=== PATIENT | female | born 1975 | race Caucasian/White ===

== ENCOUNTER 2021-03-02 08:03 | Emergency (ER) | payer OTHER ==
[2021-03-02 08:42] LABS: HEMATOCRIT 31.1 % (37.0-47.0); HEMOGLOBIN 10.1 g/dl (12.0-16.0); IMMATURE GRANULOCYTES 0.3 % (0.0-5.0); MEAN CELL VOLUME 86.6 fL CALC (80.0-100.0); MEAN CORPUSCULAR HGB 28.1 pG CALC (26.0-32.0); MEAN CORPUSCULAR HGB CONC 32.5 g/dL CAL (32.0-36.0); NEUT# 4.9 thou/uL (2.00-7.15); RED BLOOD COUNT 3.59 mill/uL (4.20-5.60); RED CELL DISTRI WIDTH 13.4 % (11.5-15.5)
[2021-03-02 09:02] LABS: ALBUMIN 3.4 g/dL (3.2-5.0); ALKALINE PHOSPHATASE 69 u/l (38-126); BILIRUBIN, TOTAL 0.5 mg/dL (0.0-1.4); BUN 31 mg/dL (7-17); BUN/CREATININE RATIO 36 (12-20 (CALC)); CARBON DIOXIDE 26 mmol/l (22-30); CHLORIDE 101 mmol/l (95-108); CREATININE 0.9 mg/dL (0.5-1.0); GFR > 60 ML/MIN (>=60 (CALC)); GFR FOR AFR.AMER. > 60 ML/MIN (>=60 (CALC)); SGOT/AST 39 u/l (14-36); SODIUM 131 mmol/l (137-146); TOTAL PROTEIN 6.9 g/dL (6.3-8.2)
[2021-03-02 09:03] LABS: ANION GAP 9 (6-22 (CALC)); POTASSIUM 5.3 mmol/l (3.5-5.1)
[2021-03-02 09:39] LABS: URINE BILIRUBIN - DIPSTICK NEGATIVE (NEGATIVE); URINE BLOOD DIPSTICK SMALL (NEGATIVE); URINE COLOR YELLOW; URINE GLUCOSE - DIPSTICK >=1000 mg/dL (NEGATIVE); URINE KETONE NEGATIVE (NEGATIVE); URINE LEUK ESTERASE NEGATIVE (NEGATIVE); URINE PH 6.5 (4.5-8.0); URINE PROTEIN - DIPSTICK 100 mg/dL (NEG-TRACE); URINE SPECIFIC GRAVITY 1.015; URINE UROBILINOGEN - DIPSTICK 0.2 E.U./dL (0.2)
[2021-03-02 09:52] LABS: URINE NITRITE - DIPSTICK NEGATIVE (Negative)
[2021-03-02 09:53] LABS: URINE EPITHELIAL CELLS MODERATE EPI/hpf (0-FEW)
[2021-03-02 12:02] VITALS: BP 160/80
[2021-03-02] MEDS ORDERED: ARIPIPRAZOLE20 MG PO (12:18)
[2021-03-02] MEDS ORDERED: HUMIRA40 MG/0.8 IM (12:21)
[2021-03-02] MEDS ORDERED: HUMULIN R500 UNIT/1 SC (12:22)
[2021-03-02] MEDS ORDERED: HYDROCORTISONE1 % EX (12:23)
[2021-03-02] MEDS ORDERED: LEVEMIR FL100 UNIT/M SC (12:24)
[2021-03-02] MEDS ORDERED: LEVEMIR100 UNIT SC (12:26)
[2021-03-02] MEDS ORDERED: LISINOPRIL10 MG PO (12:29)
[2021-03-02] MEDS ORDERED: METOPROL TAR100 MG PO (12:30)
[2021-03-02] MEDS ORDERED: NUEDEXTA1 CAP PO (12:31)
[2021-03-02] MEDS ORDERED: OMEPRAZOLE DR40 MG PO (12:33)
[2021-03-02] MEDS ORDERED: TRILEPTAL300 M1 PO (12:34)
[2021-03-02] MEDS ORDERED: PERCOCET 5/321 COMBO PO (12:35)
[2021-03-02] MEDS ORDERED: LYRICA200 MG PO (12:36)
[2021-03-02] MEDS ORDERED: TRAZODONE50 MG PO (12:38)
[2021-03-02] MEDS ORDERED: VRAYLAR4.5 MG PO (12:39)
[2021-03-02] MEDS ORDERED: XELJANZ10 MG PO (12:40)
[2021-03-02] MEDS ORDERED: BUT/APAP/CAF PO (12:41)
== END 2021-03-02 13:15 ==
LOC: ED 08:03
PROVIDERS: Emergency Medicine
DX: E10.65 Type 1 diabetes mellitus with hyperglycemia (principal); I10 Essential (primary) hypertension; Z87.820 Personal history of traumatic brain injury; Z79.4 Long term (current) use of insulin

== ENCOUNTER 2021-03-02 16:43 | Emergency (ER) | payer OTHER ==
[~2021-03-02 16:43] MED LIST: ARIPIPRAZOLE20 MG PO; BUT/APAP/CAF PO; HUMIRA40 MG/0.8 IM; HUMULIN R500 UNIT/1 SC; HYDROCORTISONE1 % EX; LEVEMIR FL100 UNIT/M SC; LEVEMIR100 UNIT SC; LISINOPRIL10 MG PO; LYRICA200 MG PO; METOPROL TAR100 MG PO; NUEDEXTA1 CAP PO; OMEPRAZOLE DR40 MG PO; PERCOCET 5/321 COMBO PO; TRAZODONE50 MG PO; TRILEPTAL300 M1 PO; VRAYLAR4.5 MG PO; XELJANZ10 MG PO
[2021-03-02 19:12] VITALS: BP 180/125
== END 2021-03-02 19:28 ==
LOC: ED 16:43
DX: E10.65 Type 1 diabetes mellitus with hyperglycemia (principal); I10 Essential (primary) hypertension; Z79.4 Long term (current) use of insulin; Z87.820 Personal history of traumatic brain injury

== ENCOUNTER 2021-03-04 09:05 | Emergency (ER) | payer OTHER ==
[2021-03-04 09:47] LABS: URINE BILIRUBIN - DIPSTICK NEGATIVE (NEGATIVE); URINE BLOOD DIPSTICK NEGATIVE (NEGATIVE); URINE COLOR YELLOW; URINE GLUCOSE - DIPSTICK >=1000 mg/dL (NEGATIVE); URINE KETONE NEGATIVE (NEGATIVE); URINE LEUK ESTERASE NEGATIVE (NEGATIVE); URINE PROTEIN - DIPSTICK 100 mg/dL (NEG-TRACE); URINE UROBILINOGEN - DIPSTICK 0.2 E.U./dL (0.2)
[2021-03-04 09:49] LABS: HEMATOCRIT 34.1 % (37.0-47.0); IMMATURE GRANULOCYTES 0.4 % (0.0-5.0); MEAN CELL VOLUME 86.8 fL CALC (80.0-100.0); MEAN CORPUSCULAR HGB CONC 32.3 g/dL CAL (32.0-36.0); NEUT# 4.99 thou/uL (2.00-7.15); RED BLOOD COUNT 3.93 mill/uL (4.20-5.60); RED CELL DISTRI WIDTH 13.4 % (11.5-15.5)
[2021-03-04 09:54] LABS: URINE NITRITE - DIPSTICK NEGATIVE (Negative)
[2021-03-04 10:02] LABS: URINE RBC 0-2 RBC/hpf (0-5); URINE SQUAMOUS EPITHELIAL CELL FEW EPI/hpf (0-FEW); URINE WBC 0-2 WBC/hpf (0-5)
[2021-03-04 10:07] LABS: ALBUMIN 3.5 g/dL (3.2-5.0); ALKALINE PHOSPHATASE 90 u/l (38-126); BILIRUBIN, TOTAL 0.4 mg/dL (0.0-1.4); BUN 29 mg/dL (7-17); BUN/CREATININE RATIO 31 (12-20 (CALC)); CHLORIDE 97 mmol/l (95-108); CREATININE 0.9 mg/dL (0.5-1.0); GFR > 60 ML/MIN (>=60 (CALC)); GFR FOR AFR.AMER. > 60 ML/MIN (>=60 (CALC)); SGOT/AST 25 u/l (14-36); SODIUM 126 mmol/l (137-146); TOTAL PROTEIN 7.2 g/dL (6.3-8.2)
[2021-03-04 10:10] LABS: ANION GAP 14 (6-22 (CALC)); CARBON DIOXIDE 20 mmol/l (22-30); POTASSIUM 5.3 mmol/l (3.5-5.1)
[2021-03-04 12:57] VITALS: BP 128/74
== END 2021-03-04 12:57 ==
LOC: ED 09:05
PROVIDERS: Family Medicine
DX: E11.65 Type 2 diabetes mellitus with hyperglycemia (principal); I10 Essential (primary) hypertension; Z79.4 Long term (current) use of insulin; Z87.820 Personal history of traumatic brain injury

== ENCOUNTER 2021-03-05 23:29 | Emergency (ER) | payer OTHER ==
[~2021-03-05] VITALS: Ht 147.3 cm; Wt 56.3 kg
[2021-03-06 00:17] LABS: HEMATOCRIT 36.1 % (37.0-47.0); HEMOGLOBIN 11.5 g/dl (12.0-16.0); IMMATURE GRANULOCYTES 0.3 % (0.0-5.0); MEAN CELL VOLUME 87.6 fL CALC (80.0-100.0); MEAN CORPUSCULAR HGB 27.9 pG CALC (26.0-32.0); MEAN CORPUSCULAR HGB CONC 31.9 g/dL CAL (32.0-36.0); NEUT# 1.95 thou/uL (2.00-7.15); RED BLOOD COUNT 4.12 mill/uL (4.20-5.60); RED CELL DISTRI WIDTH 13.6 % (11.5-15.5)
[2021-03-06 00:46] VITALS: BP 154/89
[2021-03-06 00:54] LABS: ALBUMIN 3.9 g/dL (3.2-5.0); ALKALINE PHOSPHATASE 81 u/l (38-126); ANION GAP 11 (6-22 (CALC)); BILIRUBIN, TOTAL 0.4 mg/dL (0.0-1.4); BUN 29 mg/dL (7-17); BUN/CREATININE RATIO 30 (12-20 (CALC)); CARBON DIOXIDE 26 mmol/l (22-30); CHLORIDE 103 mmol/l (95-108); ETHYL ALCOHOL 0 mg/dl (0-30); GFR 60 ML/MIN (>=60 (CALC)); GFR FOR AFR.AMER. > 60 ML/MIN (>=60 (CALC)); POTASSIUM 4.7 mmol/l (3.5-5.1); SGOT/AST 28 u/l (14-36); SODIUM 135 mmol/l (137-146); TOTAL PROTEIN 8.3 g/dL (6.3-8.2)
== END 2021-03-06 08:40 ==
LOC: ED 23:29
PROVIDERS: Family Medicine
DX: I10 Essential (primary) hypertension (principal); E11.9 Type 2 diabetes mellitus without complications; F41.9 Anxiety disorder, unspecified; T46.5X6A Underdosing of other antihypertensive drugs, initial encounter; Z91.128 Patient's intentional underdosing of medication regimen for other reason; Z87.820 Personal history of traumatic brain injury; Z79.4 Long term (current) use of insulin

== ENCOUNTER 2021-03-10 04:58 | Emergency (ER) | payer OTHER ==
[~2021-03-10] VITALS: Ht 147.3 cm; Wt 56.0 kg
[2021-03-10 06:26] LABS: HEMATOCRIT 31.7 % (37.0-47.0); IMMATURE GRANULOCYTES 0.4 % (0.0-5.0); MEAN CELL VOLUME 88.5 fL CALC (80.0-100.0); MEAN CORPUSCULAR HGB 27.9 pG CALC (26.0-32.0); MEAN CORPUSCULAR HGB CONC 31.5 g/dL CAL (32.0-36.0); NEUT# 4.73 thou/uL (2.00-7.15); RED BLOOD COUNT 3.58 mill/uL (4.20-5.60); RED CELL DISTRI WIDTH 13.9 % (11.5-15.5)
[2021-03-10 06:28] VITALS: BP 143/65
[2021-03-10 06:40] LABS: ALBUMIN 3.3 g/dL (3.2-5.0); ALKALINE PHOSPHATASE 69 u/l (38-126); ANION GAP 10 (6-22 (CALC)); BILIRUBIN, TOTAL 0.4 mg/dL (0.0-1.4); BUN 36 mg/dL (7-17); BUN/CREATININE RATIO 37 (12-20 (CALC)); CARBON DIOXIDE 25 mmol/l (22-30); CHLORIDE 105 mmol/l (95-108); GFR 60 ML/MIN (>=60 (CALC)); GFR FOR AFR.AMER. > 60 ML/MIN (>=60 (CALC)); POTASSIUM 4.7 mmol/l (3.5-5.1); PROTHROMBIN TIME 9.9 SECONDS (9.0-12.5); SGOT/AST 27 u/l (14-36); SODIUM 134 mmol/l (137-146); TOTAL PROTEIN 6.9 g/dL (6.3-8.2)
== END 2021-03-10 09:07 | disposition left against medical advice (07) ==
LOC: ED 04:58
PROVIDERS: Emergency Medicine
DX: H53.2 Diplopia (principal); R20.0 Anesthesia of skin; R25.8 Other abnormal involuntary movements; G43.909 Migraine, unspecified, not intractable, without status migrainosus; E11.649 Type 2 diabetes mellitus with hypoglycemia without coma; R04.0 Epistaxis; I10 Essential (primary) hypertension; F41.9 Anxiety disorder, unspecified; F25.9 Schizoaffective disorder, unspecified; K21.9 Gastro-esophageal reflux disease without esophagitis; W19.XXXA Unspecified fall, initial encounter; Y92.099 Unspecified place in other non-institutional residence as the place of occurrence of the external cause; Z79.4 Long term (current) use of insulin; Z87.820 Personal history of traumatic brain injury; Z91.19 Patient's noncompliance with other medical treatment and regimen; F43.10 Post-traumatic stress disorder, unspecified; M06.9 Rheumatoid arthritis, unspecified; G47.00 Insomnia, unspecified

== ENCOUNTER 2021-03-10 15:20 | Observation (INO) | payer OTHER ==
[~2021-03-10] VITALS: Ht 147.3 cm; Wt 55.0 kg
--- NOTE | 2021-03-10 15:20 | NUR ---
to room 13 via ems for triage
[2021-03-10 15:47] LABS: HEMATOCRIT 31.2 % (37.0-47.0); HEMOGLOBIN 9.9 g/dl (12.0-16.0); IMMATURE GRANULOCYTES 0.3 % (0.0-5.0); MEAN CELL VOLUME 88.6 fL CALC (80.0-100.0); MEAN CORPUSCULAR HGB 28.1 pG CALC (26.0-32.0); MEAN CORPUSCULAR HGB CONC 31.7 g/dL CAL (32.0-36.0); NEUT# 2.7 thou/uL (2.00-7.15); RED BLOOD COUNT 3.52 mill/uL (4.20-5.60); RED CELL DISTRI WIDTH 13.9 % (11.5-15.5)
[2021-03-10 16:00] LABS: ALBUMIN 3.7 g/dL (3.2-5.0); ALKALINE PHOSPHATASE 73 u/l (38-126); ANION GAP 9 (6-22 (CALC)); BILIRUBIN, TOTAL 0.5 mg/dL (0.0-1.4); BUN 37 mg/dL (7-17); BUN/CREATININE RATIO 38 (12-20 (CALC)); CARBON DIOXIDE 25 mmol/l (22-30); CHLORIDE 106 mmol/l (95-108); GFR 60 ML/MIN (>=60 (CALC)); GFR FOR AFR.AMER. > 60 ML/MIN (>=60 (CALC)); POTASSIUM 4.5 mmol/l (3.5-5.1); SGOT/AST 32 u/l (14-36); SODIUM 136 mmol/l (137-146); TOTAL PROTEIN 7.7 g/dL (6.3-8.2)
[2021-03-10 16:11] LABS: MYOGLOBIN 49 ng/mL (0 - 62)
--- NOTE | 2021-03-10 16:20 | NUR ---
PATIENT RESTING, AAOX4, RESP EVEN AND UNLABORED. CONTINUING TO MONITOR.
--- NOTE | 2021-03-10 16:28 | NUR ---
OK TO FEED PATIENT PER DR RUTH
--- NOTE | 2021-03-10 17:06 | NUR ---
BLOOD SUGAR RECHECK AT THIS TIME IS 128.
--- NOTE | 2021-03-10 17:09 | NUR ---
ATTEMPTED TO CALL REPORT, NURSE WILL CALL BACK
--- NOTE | 2021-03-10 17:15 | NUR ---
REPORT CALLED TO KAYLEN WU IN SBAR FORMAT. ALL QUESTIOMS ANSWERED.
--- NOTE | 2021-03-10 17:15 | NUR ---
REPORT RECEIVED FROM KAYLEN DALEY
--- NOTE | 2021-03-10 17:27 | NUR ---
PT ARRIVED TO MED/SURG ROOM 271 IN STABLE CONDITION VIA WHEELCHAIR ACCOMPANIED BY KAYLEN DALEY;PT AMBULATED WITH A STEADY GAIT TO BEDSIDE;WT AND VS OBTAINED BY MARILEE DUMAS;PT A&O X3, ORIENTED TO ROOM AND CALL LIGHT SYSTEM;PT REPORTS FEELING DIZZY WOOD HEEL FITTER MACHINE AND HAVING UNCONTROLLED BLOOD SUGARS IN THE PAST;PT DENIES ANY CURRENT PAIN OR DISCOMFORTS,PAIN SCALE AND REPORTING EDUCATED;ASSESSMENT COMPLETED;RESPIRATIONS EVEN AND UNLABORED ON RA,CLEAR LUNG SOUNDS;ABDOMEN SOFT ON PALPATION AND ACTIVE IN ALL 4 QUADRANTS,LAST BM 03/03/21.PT REPORTS THIS IS NORMAL FOR HER AND PRUNE JUICE PROVIDED TO ASSIST IN BOWEL CARE;STRONG PEDAL PULSES;SMALL ABRASION NOTED TO CHIN,EDGE INKER;SKIN OTHERWISE INTACT;TELE MONITORING IN PLACE;#20G TO RAC FLUSHED AND PATENT;SEIZURE PRECAUTIONS IN PLACE;FALL AND ALLERGY BAND APPLIED;ACCUCHECK PRIOR TO BEING BROUGHT TO FLOOR 128, MEAL TRAY PROVIDED;PT DENIES ANY ADDITIONAL NEEDS AND IS ENCOURAGED TO CALL FOR ASSISTANCE IF NEEDED;FALL PRECAUTIONS IN PLACE WITH BED IN THE LOWEST POSITION AND CALL LIGHT IN REACH;WILL CONTINUE TO MONITOR
--- NOTE | 2021-03-10 17:47 | NUR ---
CALL PLACED TO FOR CLARIFICATION ON ORDERS SENT TO PHARMACY. NEW ORDERS RECEIVED.
[2021-03-10 17:53] VITALS: BP 128/81
[2021-03-10 19:00] VITALS: BP 111/69
--- NOTE | 2021-03-10 20:21 | NUR ---
PATIENT IS LYING IN BED. ALERT AND ORIENTED X3. C/O BACK PAIN. PERCOCET PO GIVEN ORDERED WITH POSITIVE EFFECT. RESPIRATIONS EASY. ON TELEMETRY RUNNING SR. VAD PATENT, INTACT. BLOOD SUGAR THIS EVENING IS 271. FALL PRECAUTIONS IN PLACE. BED IN LOW POSITION. CALL LIGHT WITHIN REACH.
[2021-03-10 23:00] VITALS: BP 105/63
[2021-03-11 04:00] VITALS: BP 145/84
--- NOTE | 2021-03-11 07:05 | NUR ---
REPORT RECEIVED FROM KAURRN
[2021-03-11 07:47] VITALS: BP 138/83
--- NOTE | 2021-03-11 07:50 | NUR ---
PT RESTING IN SEMI FOWLERS POSITION,A&O X3;VS OBTAINED AND ASSESSMENT COMPLETED;PT DENIES ANY CURRENT PAIN OR DISCOMFORTS,PAIN SCALE AND REPORTING EDUCATED;RESPIRATIONS EVEN AND UNLABORED ON RA,CLEAR LUNG SOUNDS;ABDOMEN SOFT ON PALPATION AND ACTIVE IN ALL 4 QUADRANTS;STRONG PEDAL PULSES;SMALL ABRASION NOTED TO CHIN,SKIN OTHERWISE INTACT;TELE MONITORING IN PLACE;#20G TO RAC FLUSHED AND PATENT,SITE APPEARS HEALTHY;ACCUCHECK 365, PT COVERED WITH SLIDING SCALE INSULIN PER ORDER;PT DENIES ANY ADDITIONAL NEEDS AND IS ENCOURAGED TO CALL FOR ASSISTANCE IF NEEDED;FALL PRECAUTIONS IN PLACE WITH BED IN THE LOWEST POSITION AND CALL LIGHT IN REACH;WILL CONTINUE TO MONITOR
--- NOTE | 2021-03-11 08:35 | NUR ---
PT REPORTS LOWER BACK PAIN RATING 9/10 ON THE PAIN SCALE AND REQUESTS PAIN MEDICATION,PT MEDICATED WITH PRN PERCOCET AT THIS TIME;WILL CONTINUE TO MONITOR FOR EFFECTIVENESS
--- NOTE | 2021-03-11 09:37 | NUR ---
AND RITCHIE ANRP AT BEDSIDE DISCUSSING POC.
[2021-03-11 10:43] VITALS: BP 102/65
--- NOTE | 2021-03-11 11:20 | NUR ---
CALL PLACED TO [facility] REGARDING PLAN OF CARE INCLUDING PLANS TO D/C PT BACK TO THE [facility]. D/C INSTRUCTIONS FAXED TO MARLO AT [facility] PER REQUEST;AWAITING CALL BACK FOR TRANSPORTATION EMBROIDERY OPERATOR TIME;ALL DISCHARGE INSTRUCTIONS PROVIDED TO PT AT THIS TIME;PT INSTRUCTED TO F/U WITH PCP, MONITOR BLOOD SUGARS AND KEEP A LOG, DISCONTINUE NIGHT LEVEMIR ADMINISTRATION;PT VERBALIZES UNDERSTANDING AND DENIES ANY ADDITIONAL QUESTIONS OR NEEDS;IV SITE REMOVED WITH CATHETER INTACT AND TELE MONITORING D/C;AWAITING [facility] TRANSPORTATION FOR D/C;WILL CONTINUE TO MONITOR
--- NOTE | 2021-03-11 12:59 | NUR ---
REPORT GIVEN TO KAYLEN SELLERS AT [facility]
--- NOTE | 2021-03-11 13:01 | NUR ---
PT MEDICATED WITH PRN PERCOCET 2 COMBO FOR LOWER BACK PAIN RATING 10/10 ON THE PAIN SCALE,WILL CONTINUE TO MONITOR FOR EFFECTIVENESS
--- NOTE | 2021-03-11 13:37 | NUR ---
Discharge instructions given. Patient verbalizes understanding of same. Discharged in stable condition via [facility] to [facility] with *Other. All belongings sent with pt. PT TRANSPORTED TO [facility] IN STABLE CONDITION VIA WHEELCHAIR FOR D/C BACK TO [facility].ALL BELONGINGS LEFT WITH PT AT THIS TIME.[facility] TRANSPORTED PT BACK TO [facility].
== END 2021-03-11 13:37 ==
LOC: ED 15:20 → ED-I 16:20 → ED 16:20 → ED-I 16:21 → ED 16:40 → MS2 16:41
PROVIDERS: Emergency Medicine; ADMIT Internal Medicine; ATTEND Internal Medicine
DX: E11.649 Type 2 diabetes mellitus with hypoglycemia without coma (principal); I10 Essential (primary) hypertension; F41.9 Anxiety disorder, unspecified; K21.9 Gastro-esophageal reflux disease without esophagitis; F25.9 Schizoaffective disorder, unspecified; S00.83XA Contusion of other part of head, initial encounter; W19.XXXA Unspecified fall, initial encounter; Z79.4 Long term (current) use of insulin; Z87.820 Personal history of traumatic brain injury; Z20.822 Contact with and (suspected) exposure to COVID-19; H53.2 Diplopia; R20.0 Anesthesia of skin; R25.8 Other abnormal involuntary movements; G43.909 Migraine, unspecified, not intractable, without status migrainosus; R40.0 Somnolence; Y92.099 Unspecified place in other non-institutional residence as the place of occurrence of the external cause; Z91.19 Patient's noncompliance with other medical treatment and regimen; F43.10 Post-traumatic stress disorder, unspecified; M06.9 Rheumatoid arthritis, unspecified; G47.00 Insomnia, unspecified
CPT/HCPCS: G0378

== ENCOUNTER 2021-03-14 02:52 | Emergency (ER) | payer OTHER ==
[~2021-03-14] VITALS: Ht 147.3 cm; Wt 58.0 kg
[2021-03-14 03:56] LABS: HEMATOCRIT 29.9 % (37.0-47.0); HEMOGLOBIN 9.5 g/dl (12.0-16.0); IMMATURE GRANULOCYTES 0.3 % (0.0-5.0); MEAN CELL VOLUME 88.2 fL CALC (80.0-100.0); MEAN CORPUSCULAR HGB CONC 31.8 g/dL CAL (32.0-36.0); NEUT# 4.13 thou/uL (2.00-7.15); RED BLOOD COUNT 3.39 mill/uL (4.20-5.60); RED CELL DISTRI WIDTH 13.5 % (11.5-15.5)
[2021-03-14 04:12] LABS: ALBUMIN 3.3 g/dL (3.2-5.0); BILIRUBIN, TOTAL 0.5 mg/dL (0.0-1.4); CREATININE 1.3 mg/dL (0.5-1.0); TOTAL PROTEIN 6.7 g/dL (6.3-8.2)
[2021-03-14 04:16] LABS: POTASSIUM 5.4 mmol/l (3.5-5.1)
[2021-03-14 08:48] VITALS: BP 138/79
== END 2021-03-14 08:54 | disposition home or self-care (01) ==
LOC: ED 02:52
PROVIDERS: Emergency Medicine
DX: E11.65 Type 2 diabetes mellitus with hyperglycemia (principal); I10 Essential (primary) hypertension; K21.9 Gastro-esophageal reflux disease without esophagitis; F41.9 Anxiety disorder, unspecified; Z79.4 Long term (current) use of insulin; Z87.820 Personal history of traumatic brain injury; R45.1 Restlessness and agitation; F25.9 Schizoaffective disorder, unspecified; E10.8 Type 1 diabetes mellitus with unspecified complications

== ENCOUNTER 2021-03-14 09:33 | Emergency (ER) | payer OTHER ==
[~2021-03-14] VITALS: Ht 147.3 cm; Wt 56.0 kg
[2021-03-14 12:00] VITALS: BP 133/78
== END 2021-03-14 12:22 ==
LOC: ED 09:33
DX: F41.9 Anxiety disorder, unspecified (principal); F25.9 Schizoaffective disorder, unspecified; E10.8 Type 1 diabetes mellitus with unspecified complications; I10 Essential (primary) hypertension; K21.9 Gastro-esophageal reflux disease without esophagitis; Z87.820 Personal history of traumatic brain injury; Z79.4 Long term (current) use of insulin